=== PATIENT | female | born 1985 | race Two or more races ===

== ENCOUNTER 2018-09-03 21:10 | Emergency (ER) | payer MEDICAID ==
[~2018-09-03] VITALS: Ht 165.1 cm; Wt 70.4 kg
[~2018-09-03 21:10] MED LIST: OXYC-302 PO; PREN-53 PO
--- NOTE | 2018-09-03 21:21 | NUR ---
States felt her heart beating really fast approximately 10 minutes ago. Denies dizziness, syncope, or sob. Denies cardiac hx. Pt hr fluctuating between 104-128 in triage. per triage note
--- NOTE | 2018-09-03 21:31 | NUR ---
NORMAL TEMP HR IS 100-120'S NO CHEST PAIN NO SOB DR BURGOS AT BED SIDE FOR ER EVAL
[2018-09-03 21:54] LABS: BASOPHILS # (AUTO) 0.04 x10^3/uL (0-0.1); BASOPHILS % (AUTO) 1 % (0-1); EOSINOPHILS # (AUTO) 0.18 x10^3/uL (0-0.4); EOSINOPHILS % (AUTO) 3 % (1-7); LYMPHOCYTES # (AUTO) 2.49 x10^3/uL (1-3.4); LYMPHOCYTES % (AUTO) 47 % (22-44); MD NO; MEAN CORPUSCULAR HEMOGLOBIN 25.6 pg (27.0-34.8); MEAN CORPUSCULAR HGB CONC 32.9 g/dL (32.4-35.8); MEAN CORPUSCULAR VOLUME 77.8 fL (80-100); MEAN PLATELET VOLUME 8.6 fL (7.4-10.4); MONOCYTES # (AUTO) 0.23 x10^3/uL (0.2-0.8); MONOCYTES % (AUTO) 4 % (2-9); NEUTROPHILS # (AUTO) 2.38 x10^3/uL (1.8-6.8); NEUTROPHILS % (AUTO) 45 % (42-75); PLATELET COUNT 249 x10^3/uL (130-400); RED BLOOD COUNT 4.09 x10^6/uL (3.82-5.3); RED CELL DISTRIBUTION WIDTH 16.6 % (9.6-15.2)
[2018-09-03 22:05] LABS: ALANINE AMINOTRANSFERASE 19 U/L (12-78); ALBUMIN 3.8 g/dL (3.4-5.0); ANION GAP 8 mmol/L (5-15); CALCIUM 8.7 mg/dL (8.5-10.1); CHLORIDE 113 mmol/L (98-107); CREATININE 0.81 mg/dL (0.55-1.02)
[2018-09-03 22:07] LABS: ALKALINE PHOSPHATASE 89 U/L (45-117); BILIRUBIN,TOTAL 0.1 mg/dL (0.2-1.0); TOTAL PROTEIN 7.3 g/dL (6.4-8.2)
[2018-09-03 22:17] LABS: D-DIMER 0.22 ug/mlFEU (0.00-0.52); INTERNATIONAL NORMALIZED RATIO 0.97 (0.93-1.1); PROTHROMBIN TIME 10.2 Seconds (9.6-11.5)
--- NOTE | 2018-09-03 23:30 | NUR ---
pt ambulated well denied any other discomfort given dc instruction pt understood
[2018-09-03 23:36] VITALS: BP 122/72
== END 2018-09-03 23:41 | disposition home or self-care (01) ==
LOC: ED 23:35
DX: R00.0 Tachycardia, unspecified (principal)
CPT/HCPCS: 36415; 71045; 80053; 83735; 84443; 85025; 85379; 85610; 85730; 93005; 99284